=== PATIENT | female | born 1990 | race Caucasian/White ===

== ENCOUNTER 2016-11-27 00:52 | Emergency (ER) | payer OTHER ==
[2016-11-27 00:59] VITALS: TEMP 99.3
--- NOTE | 2016-11-27 01:35 | ED ---
General Adult HPI - General Chief complaint: Overdose Stated complaint: OVERDOSE Time Seen by Provider: 11/27/16 01:00 Source: patient, RN notes reviewed Mode of arrival: ambulatory Limitations: no limitations - History of Present Illness Initial comments: This is a 26-year-old female presents emergency Department after having used heroin today. Patient states she has been clean for 8 months and today was the first time any months that she has used again. Patient was found unresponsive and EMS arrived gave her Narcan and she became alert and oriented 3. Patient currently has no complaints. Patient would like to be discharged from the emergency department soon as possible. Patient denies any difficulty breathing first breath per patient denies any chest pain or palpitations. Patient denies any headache patient denies numbness weakness. Patient denies lightheadedness dizziness or near syncopal episode. Patient denies any abdominal pain. Patient denies nausea vomiting diarrhea. - Related Data Home Medications Medication Instructions Recorded Confirmed Ibuprofen [Motrin] 800 mg PO TID PRN 12/09/15 12/09/15 Previous Rx's Medication Instructions Recorded Albuterol Inhaler [Ventolin Hfa 2 puff INHALATION Q6HR PRN #1 12/09/15 Inhaler] inhaler Amoxic-Pot Clav 875-125Mg 1 tab PO Q12HR #20 tablet 12/09/15 [Augmentin 875-125] predniSONE 20 mg PO BID #10 tab 12/09/15 Allergies Allergy/AdvReac Type Severity Reaction Status Date / Time No Known Allergies Allergy Verified 11/27/16 00:59 Review of Systems ROS Statement: Those systems with pertinent positive or pertinent negative responses have been documented in the HPI. ROS Other: All systems not noted in ROS Statement are negative. Past Medical History Additional Past Medical History / Comment(s): ovarian cyst,pos History of Any Multi-Drug Resistant Organisms: None Reported Additional Past Surgical History / Comment(s): abd surgery for ovarian cyst Past Psychological History: Anxiety Smoking Status: Current every day smoker Past Drug Use History: None Reported, Heroin, Prescription Drug Abuse General Exam - General Exam Comments Initial Comments: GENERAL: Patient is well-developed and well-nourished. Patient is nontoxic and well- hydrated and is in no acute distress. ENT: Neck is soft and supple. No significant lymphadenopathy is noted. Oropharynx is clear. Moist mucous membranes. Neck has full range of motion without eliciting any pain. EYES: The sclera were anicteric and conjunctiva were pink and moist. Extraocular movements were intact and pupils were equal round and reactive to light. Eyelids were unremarkable. PULMONARY: Unlabored respirations. Good breath sounds bilaterally. No audible rales rhonchi or wheezing was noted. CARDIOVASCULAR: There is a regular rate and rhythm without any murmurs gallops or rubs. ABDOMEN: Soft and nontender with normal bowel sounds. SKIN: Skin is clear with no lesions or rashes and otherwise unremarkable. NEUROLOGIC: Patient is alert and oriented x3. Cranial nerves II through XII are grossly intact. Motor and sensory are also intact. Normal speech, volume and content. Symmetrical smile. MUSCULOSKELETAL: Normal extremities with adequate strength and full range of motion. LYMPHATICS: No significant lymphadenopathy is noted PSYCHIATRIC: Normal psychiatric evaluation. Patient is somewhat tearful because she is upset with herself or having used again Limitations: no limitations Course Vital Signs 11/27/16 00:55 Temperature 99.3 F Pulse Rate 89 Respiratory 16 Rate Blood Pressure 125/58 O2 Sat by Pulse 98 Oximetry Disposition Clinical Impression: Heroin overdose Disposition: HOME SELF-CARE Condition: Good Instructions: Narcotic Abuse (ED) Referrals: Dylan Garcia DO [Primary Care Provider] - 1-2 days Time of Disposition: 01:35
[2016-11-27 01:52] VITALS: BP 117/71; PULSE 81; RESP 18
== END 2016-11-27 01:53 | disposition home or self-care (01) ==
LOC: EC 00:52
DX: T40.1X1A Poisoning by heroin, accidental (unintentional), initial encounter (principal); F17.200 Nicotine dependence, unspecified, uncomplicated
CPT/HCPCS: 99284

== ENCOUNTER → 2021-05-07 | Outpatient (CLI) | payer OTHER ==
[2021-05-07 15:21] LABS: Basophils % (A) 1 %; Eosinophils # (A) 0.1 k/uL (0-0.7); Eosinophils % (A) 1 %; HCT 34.1 % (34.0-46.0); HGB 10.7 gm/dL (11.4-16.0); Hypochromasia Moderate; Lymphocytes # (A) 2.4 k/uL (1.0-4.8); Lymphocytes % (A) 33 %; MCH 25.9 pg (25.0-35.0); MCHC 31.4 g/dL (31.0-37.0); MCV 82.4 fL (80.0-100.0); Mean Platelet Volume 6.5; Monocytes # (A) 0.4 k/uL (0-1.0); Monocytes % (A) 5 %; Neutrophils # (A) 4.2 k/uL (1.3-7.7); Neutrophils % (A) 58 %; Platelet Count 368 k/uL (150-450); RBC 4.14 m/uL (3.80-5.40); RDW 15.3 % (11.5-15.5); WBC 7.2 k/uL (3.8-10.6)
== END | disposition home or self-care (01) ==
LOC: LABPAT 14:35
PROVIDERS: ATTEND Obstetrics & Gynecology
DX: Z01.812 Encounter for preprocedural laboratory examination (principal); N93.8 Other specified abnormal uterine and vaginal bleeding; N84.0 Polyp of corpus uteri
CPT/HCPCS: 36415; 85025

== ENCOUNTER 2021-05-18 07:47 | Day surgery (SDC) | payer OTHER ==
[2021-05-11 16:10] VITALS: BMI 34.1
[~2021-05-18 07:47] MED LIST: Pre Op ABX Message 1 EACH MISC MISCELLANE ONE
[2021-05-18] MEDS ORDERED: ONDANSETRON 4 MG/2 ML VIAL IVP ONE (08:17)
[2021-05-18] MEDS ORDERED: LACTATED RINGERS 1,000 ML IV SCH ×2 (08:17→10:15)
[2021-05-18] MEDS ORDERED: HYDROmorphone 0.5 MG/0.5 ML SYRINGE IVP PRN (08:17)
[2021-05-18] MEDS ORDERED: DEXAMETHASONE SOD PHOSPHATE 4 MG/ML 1 ML VIAL IV ONE (08:17)
[2021-05-18] MEDS ORDERED: LIDOCAINE 1% (10MG/ML) FOR IV START INTRADERMA PRN (08:17)
[2021-05-18] MEDS ORDERED: MIDAZOLAM 2 MG/2 ML VIAL IV PRN (08:17)
[2021-05-18] MEDS ORDERED: SUCCINYLCHOLINE CHLORIDE 100 MG/5 ML SYR IV ONE (09:18)
[2021-05-18] MEDS ORDERED: ACETAMINOPHEN IV (For NPO) 1,000 MG/100 ML VIAL ONE (09:18)
[2021-05-18] MEDS ORDERED: LIDOCAINE 1% INJ 10MG/ML (20 ML MDV) ONE (09:18)
[2021-05-18] MEDS ORDERED: MIDAZOLAM 2 MG/2 ML VIAL ONE (09:18)
[2021-05-18] MEDS ORDERED: PROPOFOL 10 MG/ML 20 ML VIAL IV ONE (09:18)
[2021-05-18] MEDS ORDERED: LACTATED RINGERS 1,000 ML IV ONE (09:51)
[2021-05-18] MEDS ORDERED: IBUPROFEN 600 MG TAB PO PRN (10:02)
[2021-05-18] MEDS ORDERED: KETOROLAC 15 MG/ML 1 ML VIAL IVP PRN (10:02)
[2021-05-18] MEDS ORDERED: ONDANSETRON 4 MG/2 ML VIAL IVP PRN (10:02)
[2021-05-18] MEDS ORDERED: METOCLOPRAMIDE 5 MG/ML 2 ML VIAL IVP PRN (10:02)
[2021-05-18] MEDS ORDERED: Acetaminophen-Codeine 300-30mg TAB PO PRN ×2 (10:02)
[2021-05-18] MEDS ORDERED: diphenhydrAMINE 50 MG/ML 1 ML VIAL IVP PRN (10:02)
[2021-05-18] MEDS ORDERED: SIMETHICONE 80 MG CHEWABLE PO PRN (10:02)
--- NOTE | 2021-05-18 10:10 | P.OP ---
Date of Procedure: 05/18/21 Preoperative Diagnosis: #1. Dysfunctional uterine bleeding #2. Possible endometrial polyp Postoperative Diagnosis: Same Procedure(s) Performed: #1. Diagnostic hysteroscopy #2. Dilation and curettage Anesthesia: JARRETT Surgeon: Gabe Snell Estimated Blood Loss (ml): 5 IV fluids (ml): 800 Urine output (ml): 100 Pathology: other (Endometrial curettings) Condition: stable Disposition: PACU Operative Findings: Preoperative pelvic examination demonstrated a 4-5 week anteverted mobile normal shaped uterus with normal adnexa bilaterally. Intraoperatively, the uterus sounded to 8 cm. Using the hysteroscope, the bilateral tubal ostia were seen. There was a moderate amount of shaggy in usual tissue along the posterior wall of the entire uterus plus a possible polypoid structure. A moderate amount of tissue was removed onto a Telfa in the vagina during the case. Description of Procedure: The patient was prepped and draped in usual fashion after general endotracheal anesthesia was admission by the anesthesiologist. A weighted speculum and the anterior lip of the cervix grasped with a single-tooth tenaculum. The bladder was drained of approximately 100 mL of clear tiera urine. The uterus was sounded to 8 cm as noted above. Serial dilation was carried out to admit the diagnostic hysteroscope which was placed to the fundus and the uterus distended with fluid. The findings as noted above with the bilateral tubal ostia seen. There was a moderate amount of shaggy tissue noted along the posterior wall uterus primarily with a small possibly polypoid structure the lower portion on the posterior wall of the endometrial cavity. After adequate hysteroscopy had been carried out, the scope was set aside and a medium sharp curet introduced into the endometrial cavity. Thorough and circumferential curettage was carried out onto a Telfa placed in the vagina. There was a moderate amount of tissue returned with some possible polypoid appearing tissue present. Following curettage with the typical gritty texture encountered throughout, a polyp forceps was introduced and no further tissue was noted. All instrumentation was then removed. Estimated blood loss for the case was approximate 5 mL. There were no complications. All sponge, instrument, and needle counts were correct. The patient tolerated the procedure well and proceeded to the recovery room in stable condition.
[2021-05-18 10:11] VITALS: TEMP 98.1
[2021-05-18 11:13] VITALS: BP 130/72; PULSE 81; RESP 16
== END 2021-05-18 11:22 | disposition home or self-care (01) ==
LOC: OR 07:47
PROVIDERS: ATTEND Obstetrics & Gynecology
DX: N84.0 Polyp of corpus uteri (principal); N93.8 Other specified abnormal uterine and vaginal bleeding; F41.9 Anxiety disorder, unspecified; F32.A Depression, unspecified; K21.9 Gastro-esophageal reflux disease without esophagitis; F17.210 Nicotine dependence, cigarettes, uncomplicated; Z98.890 Other specified postprocedural states; F19.11 Other psychoactive substance abuse, in remission; F10.11 Alcohol abuse, in remission; Z82.49 Family history of ischemic heart disease and other diseases of the circulatory system; Z82.5 Family history of asthma and other chronic lower respiratory diseases; Z82.3 Family history of stroke; Z81.8 Family history of other mental and behavioral disorders; Z80.3 Family history of malignant neoplasm of breast; Z80.41 Family history of malignant neoplasm of ovary; Z79.891 Long term (current) use of opiate analgesic; Z79.51 Long term (current) use of inhaled steroids; Z79.899 Other long term (current) drug therapy
CPT/HCPCS: 88305; 84703; 58558; J2250; J1100; J2405; J2001; J0131; J0330; J2704

== ENCOUNTER 2022-03-29 01:56 | Emergency (ER) | payer OTHER ==
[2022-03-29 02:05] VITALS: RESP 20
[2022-03-29] MEDS ORDERED: SODIUM CHLORIDE 0.9% 1,000 ML IV STA (02:16)
[2022-03-29] MEDS ORDERED: PANTOPRAZOLE 40 MG/10 ML VIAL IVP STA (02:16)
[2022-03-29] MEDS ORDERED: ONDANSETRON 4 MG/2 ML VIAL IVP STA (02:16)
[2022-03-29 02:41] LABS: Basophils # (A) 0.1 k/uL (0-0.2); Basophils % (A) 1 %; Eosinophils # (A) 0.1 k/uL (0-0.7); Eosinophils % (A) 1 %; HCT 38.7 % (34.0-46.0); Lymphocytes # (A) 3.2 k/uL (1.0-4.8); Lymphocytes % (A) 32 %; MCH 27.6 pg (25.0-35.0); MCHC 33.6 g/dL (31.0-37.0); MCV 82.3 fL (80.0-100.0); Mean Platelet Volume 7.5; Monocytes # (A) 0.5 k/uL (0-1.0); Monocytes % (A) 5 %; Neutrophils # (A) 5.8 k/uL (1.3-7.7); Neutrophils % (A) 58 %; Platelet Count 425 k/uL (150-450); RDW 13.9 % (11.5-15.5); WBC 9.9 k/uL (3.8-10.6)
[2022-03-29 02:52] LABS: HCG,Qualitative Serum Not Detected
[2022-03-29 02:53] LABS: ALT 15 U/L (4-34); AST 19 U/L (14-36); African American GFR (CKD) >90 (>60 ml/min/1.73 sqM); Albumin 4.6 g/dL (3.5-5.0); Alkaline Phosphatase 112 U/L (38-126); Amylase 45 U/L (30-110); Anion Gap 14 mmol/L; Blood Urea Nitrogen 18 mg/dL (7-17); Carbon Dioxide 25 mmol/L (22-30); Chloride 97 mmol/L (98-107); Glucose 131 mg/dL (74-99); Lipase 47 U/L (23-300); Non-African American GFR(CKD) >90 (>60 ml/min/1.73 sqM); Potassium 3.7 mmol/L (3.5-5.1); Sodium 136 mmol/L (137-145); Total Bilirubin 0.5 mg/dL (0.2-1.3); Total Protein 7.9 g/dL (6.3-8.2)
[2022-03-29 03:01] LABS: INR 1.1 (<1.2); Partial Thromboplastin Time 29.3 sec (22.0-30.0); Prothrombin Time 11.9 sec (9.0-12.0)
[2022-03-29] MEDS ORDERED: KETOROLAC 15 MG/ML 1 ML VIAL IVP STA (03:17)
[2022-03-29] MEDS ORDERED: LORazepam 1 MG TAB PO STA (03:24)
--- NOTE | 2022-03-29 03:28 | ED ---
General Adult HPI - General Chief complaint: Recheck/Abnormal Lab/Rx Stated complaint: lower back pain Time Seen by Provider: 03/29/22 02:07 Source: patient, RN notes reviewed, old records reviewed Mode of arrival: ambulatory Limitations: no limitations - History of Present Illness Initial comments: Patient is a 32-year-old female who presents emergency Department complaining of 5 or 6 days of lower abdominal pain with some radiation to the back as well as heavy period-like symptoms. Patient states she does have a history of heavy menstrual bleeding, and she is once again expressing when those episodes. Also endorses some atypical abdominal discomfort in her lower abdomen and radiation to the back. Does have a history of a ruptured uterine cyst that did require surgical intervention. Is not on blood thinners. Does take Suboxone. Denies c hest pain or shortness of breath. Denies fevers, chills, cough. Denies any urinary complaints. States she is not . She presents over concern for continuation of pain. States she is very anxious as well. Is uncertain what is causing her current symptoms. Presents for further evaluation at this time. Unknown palliative or provocative factors. Describes it as achy sharp sensation. Has been more or less constant for the last 5 days. No waxing and waning of symptoms. States the back pain seems to be worse than the abdominal pain. - Related Data Home Medications Medication Instructions Recorded Confirmed Acyclovir 800 mg PO DAILY PRN 05/11/21 05/11/21 Budesonide/Formoterol Fumarate 2 puff INHALATION BID 05/11/21 05/11/21 [Symbicort 160-4.5 Mcg Inhaler] Buprenorphine HCl/Naloxone HCl 1 each SL BID 05/11/21 05/11/21 [Suboxone 8 mg-2 mg Sl Film] Cetirizine HCl 10 mg PO HS 05/11/21 05/11/21 Dextroamphetamine/Amphetamine 20 mg PO BID 05/11/21 05/11/21 [Adderall] Ergocalciferol [Vitamin D2 (1250 1,250 mcg PO Q30D 05/11/21 05/18/21 Mcg = 25171 Iu)] FLUoxetine HCL [PROzac] 40 mg PO BID 05/11/21 05/11/21 Famotidine 20 mg PO HS 05/11/21 05/11/21 Gabapentin [Neurontin] 600 mg PO TID 05/11/21 05/11/21 Multivitamins, Thera [Multivitamin 1 tab PO DAILY 05/11/21 05/18/21 (formulary)] Omeprazole [PriLOSEC] 40 mg PO DAILY 05/11/21 05/11/21 Sennosides [Senna] 8.6 mg PO HS 05/11/21 05/11/21 norgestimate-ethinyl estradioL 1 tab PO DAILY 05/11/21 05/11/21 [Sprintec 28 Day Tablet] Previous Rx's Medication Instructions Recorded Sulfamethox-Tmp 800-160Mg [Bactrim 1 tab PO Q12HR 7 Days #14 tab 03/29/22 DS 800-160 mg] Allergies Allergy/AdvReac Type Severity Reaction Status Date / Time No Known Allergies Allergy Verified 03/29/22 02:05 Review of Systems ROS Statement: Those systems with pertinent positive or pertinent negative responses have been documented in the HPI. Review of Systems: CONST: Denies fever EYES: Denies blurry vision ENT: Denies nasal congestion C/V: Denies Chest pain RESP: Denies shortness of breath GI: Versus abdominal pain, back pain : Denies dysuria SKIN: Denies rash. MSK: Denies joint pain. NEURO: Denies headache ROS Other: All systems not noted in ROS Statement are negative. Past Medical History Additional Past Medical History / Comment(s): ovarian cyst,pos History of Any Multi-Drug Resistant Organisms: None Reported Additional Past Surgical History / Comment(s): abd surgery for ovarian cyst Past Psychological History: Anxiety Smoking Status: Current every day smoker Past Alcohol Use History: None Reported Past Drug Use History: Heroin, Prescription Drug Abuse General Exam - General Exam Comments Initial Comments: General: Appears in no acute distress. HEAD: Normal with no signs of head trauma. EYES: PERRLA, EOMI, conjunctiva normal, no discharge. ENT: Hearing grossly intact, normal oropharynx. RESPIRATORY: Clear breath sounds bilaterally. No wheezes, rales, or rhonchi. C/V: Tachycardia. S1 and S2 auscultated. Peripheral pulses 2+ intact throughout. ABD: Abd is soft, nontender, nondistended. No flank pain. Primarily lower paraspinal lumbar tenderness palpation. No CVA tenderness to percussion. No g uarding. No rebound tenderness. EXT: Normal range of motion, no obvious deformity SKIN: No rashes or lesions observed on exposed skin. NEURO: Alert and oriented 4. No focal deficits. Limitations: no limitations Course Vital Signs 03/29/22 03/29/22 02:03 04:56 Temperature 97.6 F 98.6 F Pulse Rate 127 H 98 Respiratory 20 Rate Blood Pressure 128/76 121/74 O2 Sat by Pulse 96 96 Oximetry Medical Decision Making - Medical Decision Making Based on the patient's presentation and physical exam, concern for acute intra- abdominal pathology for her current symptoms. Most her pain does seem to be on her lower back. However we will obtain abdominal laboratory studies, a screening EKG due to her initial tachycardia, as well as urine studies. We will obtain an abdominal x-ray as well. She will be symptomatically treated as well. She was in agreement this plan. She is having heavy menstrual bleeding which is typical for her. Is using the normal number of tampons and pads. Vital signs within acceptable limits except for the initial tachycardia which has resolved. Screening EKG shows no signs of acute ischemia. Laboratory studies are remarkable for normal coags, no evidence of anemia, with electrolyte within acceptable limits. Patient is not . KUB x-ray as interpreted by myself reveals no acute intra-abdominal process. No signs of obstruction, free air, bony traumatic injury. I did discuss with the patient that I would like to obtain CT imaging of the abdomen and pelvis per and she was in agreement this plan. At this time, she is resting comfortably and is in no acute distress.Patient's CT imaging is interp reted by myself reveals no acute intra-abdominal process. No evidence of obstruction, no evidence of hydronephrosis, no bony traumatic injury. Urinalysis also returned at this time and was concerning for a UTI. On reevaluation, we discussed results. She is feeling improved. Vital signs within acceptable limits. I would like to discharge her home at this time on antibiotics for UTI. She was in agreement with the plan. Strict return precautions were discussed. I will provide the patient with a prescription for Bactrim. I instructed the patient to follow up with their PCP in the next 1-3 days. I explained that the patient should return to the emergency department if they experience any worsening symptoms. Strict return precautions were discussed with the patient. The patient expressed understanding of these instructions. I answered all questions that the patient had. The patient was discharged home in good condition with their prescriptions and follow up information. - Lab Data Result diagrams: 03/29/22 02:30 03/29/22 02:30 Lab Results 03/29/22 03/29/22 03/29/22 Range/Units 02:20 02:30 02:30 WBC 9.9 (3.8-10.6) k/uL RBC 4.70 (3.80-5.40) m/uL Hgb 13.0 (11.4-16.0) gm/dL Hct 38.7 (34.0-46.0) % MCV 82.3 (80.0-100.0) fL MCH 27.6 (25.0-35.0) pg MCHC 33.6 (31.0-37.0) g/dL RDW 13.9 (11.5-15.5) % Plt Count 425 (150-450) k/uL MPV 7.5 Neutrophils % 58 % Lymphocytes % 32 % Monocytes % 5 % Eosinophils % 1 % Basophils % 1 % Neutrophils # 5.8 (1.3-7.7) k/uL Lymphocytes # 3.2 (1.0-4.8) k/uL Monocytes # 0.5 (0-1.0) k/uL Eosinophils # 0.1 (0-0.7) k/uL Basophils # 0.1 (0-0.2) k/uL PT 11.9 (9.0-12.0) sec INR 1.1 (<1.2) APTT 29.3 (22.0-30.0) sec Sodium (137-145) mmol/L Potassium (3.5-5.1) mmol/L Chloride (98-107) mmol/L Carbon Dioxide (22-30) mmol/L Anion Gap mmol/L BUN (7-17) mg/dL Creatinine (0.52-1.04) mg/dL Est GFR (CKD-EPI)AfAm (>60 ml/min/1.73 sqM) Est GFR (CKD-EPI)NonAf (>60 ml/min/1.73 sqM) Glucose (74-99) mg/dL Plasma Lactic Acid Aleks (0.7-2.0) mmol/L Calcium (8.4-10.2) mg/dL Total Bilirubin (0.2-1.3) mg/dL AST (14-36) U/L ALT (4-34) U/L Alkaline Phosphatase (38-126) U/L Total Protein (6.3-8.2) g/dL Albumin (3.5-5.0) g/dL Amylase (30-110) U/L Lipase (23-300) U/L HCG, Qual Urine Color Urine Appearance (Clear) Urine pH (5.0-8.0) Ur Specific [place] (1.001-1.035) Urine Protein (Negative) Urine Glucose (UA) (Negative) Urine Ketones (Negative) Urine Blood (Negative) Urine Nitrite (Negative) Urine Bilirubin (Negative) Urine Urobilinogen (<2.0) mg/dL Ur Leukocyte Esterase (Negative) Urine RBC (0-5) /hpf Urine WBC (0-5) /hpf Ur Squamous Epith Cells (0-4) /hpf Hyaline Casts (0-2) /lpf Urine Mucus (None) /hpf Urine Yeast (Budding) (None) /hpf Blood Type O Positive Blood Type Recheck O Pos Bld Type Recheck Status No Antibody Screen NEGATIVE Spec Expiration Date 04/01/2022 - 231903/29/22 03/29/22 03/29/22 Range/Units 02:30 02:30 04:20 WBC (3.8-10.6) k/uL RBC (3.80-5.40) m/uL Hgb (11.4-16.0) gm/dL Hct (34.0-46.0) % MCV (80.0-100.0) fL MCH (25.0-35.0) pg MCHC (31.0-37.0) g/dL RDW (11.5-15.5) % Plt Count (150-450) k/uL MPV Neutrophils % % Lymphocytes % % Monocytes % % Eosinophils % % Basophils % % Neutrophils # (1.3-7.7) k/uL Lymphocytes # (1.0-4.8) k/uL Monocytes # (0-1.0) k/uL Eosinophils # (0-0.7) k/uL Basophils # (0-0.2) k/uL PT (9.0-12.0) sec INR (<1.2) APTT (22.0-30.0) sec Sodium 136 L (137-145) mmol/L Potassium 3.7 (3.5-5.1) mmol/L Chloride 97 L (98-107) mmol/L Carbon Dioxide 25 (22-30) mmol/L Anion Gap 14 mmol/L BUN 18 H (7-17) mg/dL Creatinine 0.85 (0.52-1.04) mg/dL Est GFR (CKD-EPI)AfAm >90 (>60 ml/min/1.73 sqM) Est GFR (CKD-EPI)NonAf >90 (>60 ml/min/1.73 sqM) Glucose 131 H (74-99) mg/dL Plasma Lactic Acid Aleks 2.0 (0.7-2.0) mmol/L Calcium 10.0 (8.4-10.2) mg/dL Total Bilirubin 0.5 (0.2-1.3) mg/dL AST 19 (14-36) U/L ALT 15 (4-34) U/L Alkaline Phosphatase 112 (38-126) U/L Total Protein 7.9 (6.3-8.2) g/dL Albumin 4.6 (3.5-5.0) g/dL Amylase 45 (30-110) U/L Lipase 47 (23-300) U/L HCG, Qual Not Detected Urine Color Yellow Urine Appearance Turbid H (Clear) Urine pH 5.5 (5.0-8.0) Ur Specific [place] 1.026 (1.001-1.035) Urine Protein 2+ H (Negative) Urine Glucose (UA) Trace H (Negative) Urine Ketones Negative (Negative) Urine Blood Moderate H (Negative) Urine Nitrite Negative (Negative) Urine Bilirubin Negative (Negative) Urine Urobilinogen <2.0 (<2.0) mg/dL Ur Leukocyte Esterase Large H (Negative) Urine RBC 17 H (0-5) /hpf Urine WBC 65 H (0-5) /hpf Ur Squamous Epith Cells 42 H (0-4) /hpf Hyaline Casts 103 H (0-2) /lpf Urine Mucus Many H (None) /hpf Urine Yeast (Budding) Occasional H (None) /hpf Blood Type Blood Type Recheck Bld Type Recheck Status Antibody Screen Spec Expiration Date - EKG Data -: EKG Interpreted by Me EKG Comments: 12-lead Electrocardiogram Interpretation Note EKG was reviewed and interpreted by myself. 12-lead ECG performed at 0242 is interpreted by me as revealing normal sinus rhythm at a rate of 71 beats per minute. [place] is normal. MI interval is 140 ms, QRS duration is 90 ms, QTc is 423 ms. There is a new isolated T-wave inversion in lead V2. There were no other acute ST or T wave abnormalities to suggest myocardial ischemia or injury. R wave progression across the precordium was satisfactory. By my interpretation this EKG is non-diagnostic for acute ischemia. When compared with EKG from August 2015, isolated T-wave inversion is new in V2 but no other significant findings. No suggestion of acute ischemia. Disposition Clinical Impression: UTI (urinary tract infection) Disposition: HOME SELF-CARE Condition: Good Instructions (If sedation given, give patient instructions): Urinary Tract Infection in Women (ED) Prescriptions: Sulfamethox-Tmp 800-160Mg [Bactrim DS 800-160 mg] 1 tab PO Q12HR 7 Days #14 tab Is patient prescribed a controlled substance at d/c from ED?: No Referrals: Archie Rucker MD [Primary Care Provider] - 1-2 days Time of Disposition: 05:00
--- NOTE | 2022-03-29 03:35 | XR ---
EXAMINATION TYPE: XR KUB DATE OF EXAM: 03/29/2022 COMPARISON: 08/21/2015 HISTORY: Back pain TECHNIQUE: 2 views upright FINDINGS: There is no sign of intestinal obstruction or pneumoperitoneum. Fecal pattern is normal. No evidence of a mass. Lung bases are clear IMPRESSION: Nonacute abdomen. No change.
--- NOTE | 2022-03-29 04:08 | CT ---
EXAMINATION TYPE: CT abdomen pelvis w con DATE OF EXAM: 03/29/2022 COMPARISON: 08/21/2015 HISTORY: Lower Abdominal pain CT DLP: 1003.2 mGycm Automated exposure control for dose reduction was used. CONTRAST: Performed with IV Contrast, patient injected with 100 mL of Isovue 300. Images obtained from the diaphragm to the floor the pelvis with the IV contrast. Lung bases are clear. No pleural effusion. Heart size is normal. No pericardial effusion. Liver spleen stomach pancreas gallbladder appear normal. Extra not dilated. There is no adrenal mass. Kidneys of normal size. No hydronephrosis. Ureters are not dilated. Appendi x is posterior and lateral and appears normal. There is no retroperitoneal adenopathy. Bladder disten ds smoothly. No inguinal hernia. No free fluid in the pelvis. Uterus is retroverted. No pelvic mass. There is no mesenteric edema. No ascites or free air. No sign of a bowel obstruction. The lumbar vertebrae have normal alignment. Posterior elements are intact. No compression fracture. B wilberto pelvis is intact. The hip joints are intact. IMPRESSION: Negative CT scan abdomen and pelvis. No adverse change compared to old exam.
[2022-03-29 04:36] LABS: Appearance,Urine Turbid (Clear); Bilirubin,Urine Negative (Negative); Blood,Urine Moderate (Negative); Budding Yeast,Urine Occasional /hpf; Color,Urine Yellow; Glucose,Urine (UA) Trace (Negative); Hyaline Casts,Urine 103 /lpf (0-2); Ketones,Urine Negative (Negative); Leukocyte Esterase,Urine Large (Negative); Mucus,Urine Many /hpf; Nitrite,Urine Negative (Negative); PH, Urine 5.5 (5.0-8.0); Protein,Urine 2+ (Negative); RBC,Urine 17 /hpf (0-5); Specific Gravity,Urine 1.026 (1.001-1.035); Squamous Epithelial Cell,Urine 42 /hpf (0-4); Urobilinogen,Urine <2.0 mg/dL (<2.0); WBC,Urine 65 /hpf (0-5)
[2022-03-29] MEDS ORDERED: SULFAMETHOX-TMP 800-160MG 1 EACH TAB PO STA (05:01)
[2022-03-29 07:10] VITALS: BP 121/74; PULSE 98; TEMP 98.6
== END 2022-03-29 05:22 | disposition home or self-care (01) ==
LOC: EC 01:56
DX: N39.0 Urinary tract infection, site not specified (principal); F41.9 Anxiety disorder, unspecified; F17.200 Nicotine dependence, unspecified, uncomplicated
CPT/HCPCS: 36415; 93005; 86900; 86901; 80053; 82150; 83605; 83690; 85025; 85610; 85730; 86850; 81001; 84703; 87086; 74018; 74177; 99284; 96374; 96375 ×2; 96361; J2405; J1885; C9113; Q9967

== ENCOUNTER 2022-04-20 12:47 | Emergency (ER) | payer OTHER ==
[2022-04-20 13:08] VITALS: TEMP 97
[2022-04-20] MEDS ORDERED: ONDANSETRON ODT 4 MG TAB PO STA (16:35)
[2022-04-20] MEDS ORDERED: FAMOTIDINE 20 MG TAB PO STA (16:35)
[2022-04-20] MEDS ORDERED: LORazepam 1 MG TAB PO STA ×2 (16:35→18:55)
--- NOTE | 2022-04-20 16:37 | ED ---
General Adult HPI - General Chief complaint: Alcohol Stated complaint: alcohol withdrawal Time Seen by Provider: 04/20/22 16:29 Source: patient, RN notes reviewed Mode of arrival: ambulatory Limitations: no limitations - History of Present Illness Initial comments: Patient is a pleasant 32-year-old female presenting to the emergency department with concerns for alcohol withdrawal. Patient last drink close to 48 hours ago. Patient is drinking anywhere from a couple of beers up until a pint per day. Patient does have some occasional nausea. Patient does feel jittery and shaky. Patient finds it difficult to relax. - Related Data Home Medications Medication Instructions Recorded Confirmed Buprenorphine HCl/Naloxone HCl 1 film SL BID 05/11/21 04/20/22 [Suboxone 8 mg-2 mg Sl Film] Cetirizine HCl 10 mg PO HS 05/11/21 04/20/22 Ergocalciferol [Vitamin D2 (1250 1,250 mcg PO Q30D 05/11/21 04/20/22 Mcg = 17236 Iu)] FLUoxetine HCL [PROzac] 40 mg PO HS 05/11/21 04/20/22 Omeprazole [PriLOSEC] 40 mg PO HS 05/11/21 04/20/22 Albuterol Sulfate [Proair Hfa] 2 puff INHALATION RT-QID PRN 04/20/22 04/20/22 Ibuprofen [Motrin] 800 mg PO BID PRN 04/20/22 04/20/22 metFORMIN HCL [Glucophage] 1,000 mg PO HS 04/20/22 04/20/22 Allergies Allergy/AdvReac Type Severity Reaction Status Date / Time No Known Allergies Allergy Verified 04/20/22 18:01 Review of Systems ROS Statement: Those systems with pertinent positive or pertinent negative responses have been documented in the HPI. ROS Other: All systems not noted in ROS Statement are negative. Constitutional: Denies: fever Eyes: Denies: eye pain ENT: Denies: ear pain Respiratory: Denies: cough Cardiovascular: Denies: palpitations Endocrine: Denies: fatigue Gastrointestinal: Reports: as per HPI, nausea. Denies: abdominal pain Genitourinary: Denies: dysuria Musculoskeletal: Denies: back pain Skin: Denies: rash Neurological: Denies: weakness Psychiatric: Reports: as per HPI Past Medical History Additional Past Medical History / Comment(s): ovarian cyst,pos History of Any Multi-Drug Resistant Organisms: None Reported Additional Past Surgical History / Comment(s): abd surgery for ovarian cyst Past Psychological History: Anxiety Smoking Status: Current every day smoker Past Alcohol Use History: None Reported, Abuse Past Drug Use History: Heroin, Prescription Drug Abuse General Exam Limitations: no limitations General appearance: alert, in no apparent distress Head exam: Present: normocephalic Eye exam: Present: normal appearance Neck exam: Present: normal inspection Respiratory exam: Present: normal lung sounds bilaterally Cardiovascular Exam: Present: regular rate, normal rhythm GI/Abdominal exam: Present: soft. Absent: tenderness Extremities exam: Present: normal inspection Neurological exam: Present: alert Psychiatric exam: Present: anxious (Patient does appear mildly anxious) Skin exam: Present: normal color Course Vital Signs 04/20/22 04/20/22 13:05 17:23 Temperature 97 F L Pulse Rate 87 66 Respiratory 20 17 Rate Blood Pressure 141/102 127/86 O2 Sat by Pulse 99 100 Oximetry Medical Decision Making - Medical Decision Making Patient reevaluated and updated Disposition Clinical Impression: Alcohol withdrawal Disposition: HOME SELF-CARE Condition: Stable Instructions (If sedation given, give patient instructions): Alcohol Withdrawal (ED) Additional Instructions: Extra Ativan to go home with, this should be cut in half and used over the next one to 2 days. Return for increased heart rate, vomiting, shaking, worsening or changing symptoms or other concerns. Discontinue all alcohol use. Consider follow-up with [place] or similar facility, list provided Is patient prescribed a controlled substance at d/c from ED?: No Referrals: Jm Garcia MD [STAFF PHYSICIAN] - 1-2 days Time of Disposition: 18:53
[2022-04-20 17:25] VITALS: BP 127/86; PULSE 66; RESP 17
[2022-04-20] MEDS ORDERED: LORazepam 2 MG/ML INJ IM STA (17:31)
[2022-04-20] MEDS ORDERED: ONDANSETRON 4 MG ODT STARTER PACK 2 TAB BTL PO STA (18:54)
== END 2022-04-20 19:32 | disposition home or self-care (01) ==
LOC: EC 12:47
DX: F10.239 Alcohol dependence with withdrawal, unspecified (principal); F17.200 Nicotine dependence, unspecified, uncomplicated; F41.9 Anxiety disorder, unspecified; F11.20 Opioid dependence, uncomplicated
CPT/HCPCS: 82075; 99284; J2060; S0119

== ENCOUNTER → 2022-11-18 | Outpatient (CLI) | payer BC ==
--- NOTE | 2022-11-19 10:16 | MR ---
EXAMINATION TYPE: MR brain wo con DATE OF EXAM: 11/18/2022 COMPARISON: NONE HISTORY: 32-year-old female G40.89, Seizure disorder TECHNIQUE: Multiplanar, multisequence images of the brain and brainstem were acquired without IV con trast. Diffusion weighted imaging is performed. FINDINGS: No evidence for acute infarction, hemorrhage, mass, mass effect, midline shift, herniation, effacemen t of basal cisterns, or extra-axial fluid collection. The ventricles and sulci are age-appropriate. Major intracranial flow voids are intact. T2/FLAIR weighted sequences show no white matter signal abnormality. No branch matter heterotopia or volume loss of the fornices or hippocampi. Midline structures demonstrate normal morphology. The craniocervical junction is normal. Trace mucosal thickening within the ethmoid air cells. Globes are intact. IMPRESSION: No intracranial abnormality seen.
== END | disposition home or self-care (01) ==
LOC: RADMRIMAIN 11:35
PROVIDERS: ATTEND Internal Medicine
DX: Z00.8 Encounter for other general examination (principal); G40.89 Other seizures; I10 Essential (primary) hypertension; F33.1 Major depressive disorder, recurrent, moderate; N89.8 Other specified noninflammatory disorders of vagina
CPT/HCPCS: 70551

== ENCOUNTER 2024-02-04 09:22 | Emergency (ER) | payer BC, OTHER ==
[2024-02-04 09:42] VITALS: RESP 18
--- NOTE | 2024-02-04 10:47 | ED ---
Anxiety HPI - General Chief Complaint: Anxiety Stated Complaint: Vomiting, anxiety Time Seen by Provider: 02/04/24 10:44 Source: patient, RN notes reviewed Mode of arrival: ambulatory - History of Present Illness Initial Comments: 34-year-old female presented to the ER with a chief complaint of anxiety. Patient does take Suboxone due to herion abuse. Patient states she entered [facility] for Xanax use on 01-30-2024. Patient states she completed the detox process last night decided to leave with a friend. Patient reports she did use methamphetamine last night. She also reports smoking marijuana. No other drugs or alcohol use. Patient states she would like to reenter rehabilitation and feels very anxious about her decision. She does report that her she feels as if her family would be "better off without me". She denies any plan. Denies any homicidal ideations. She denies any current pain or physical complaints. Patient states that she presented to the ER today because if not she would have relapsed on Xanax as she is sleeping in her car. Patient did like help reentering rehabilitation. - Related Data Home Medications: Home Medications Medication Instructions Recorded Confirmed Buprenorphine HCl/Naloxone HCl 1 film SL TID 05/11/21 02/04/24 [Suboxone 8 mg-2 mg Sl Film] Cetirizine HCl 10 mg PO DAILY 05/11/21 02/04/24 Ergocalciferol [Vitamin D2 (1250 1,250 mcg PO Q30D 05/11/21 02/04/24 Mcg = 90084 Iu)] FLUoxetine HCL [PROzac] 40 mg PO DAILY 05/11/21 02/04/24 Albuterol Sulfate [Proair Hfa] 2 puff INHALATION RT-QID PRN 04/20/22 02/04/24 Acyclovir [Zovirax] 800 mg PO DAILY PRN 02/04/24 02/04/24 Glycopyrrolate [Robinul] 1 mg PO BID 02/04/24 02/04/24 Ketoconazole 2% Cream [Nizoral 2%] 1 applic TOPICAL HS 02/04/24 02/04/24 Ondansetron Odt [Zofran Odt] 4 mg PO TID PRN 02/04/24 02/04/24 lisinopriL [Zestril] 10 mg PO DAILY 02/04/24 02/04/24 Allergies/Adverse Reactions: Allergies Allergy/AdvReac Type Severity Reaction Status Date / Time No Known Allergies Allergy Verified 02/04/24 11:40 Review of Systems ROS Statement: Those systems with pertinent positive or pertinent negative responses have been documented in the HPI. ROS Other: All systems not noted in ROS Statement are negative. Past Medical History Additional Past Medical History / Comment(s): ovarian cyst,pos History of Any Multi-Drug Resistant Organisms: None Reported Additional Past Surgical History / Comment(s): abd surgery for ovarian cyst Past Psychological History: Anxiety Smoking Status: Current every day smoker Past Alcohol Use History: None Reported, Abuse Past Drug Use History: Heroin, Methamphetamine, Prescription Drug Abuse General Exam Limitations: no limitations General appearance: alert, in no apparent distress, anxious Respiratory exam: Present: normal lung sounds bilaterally. Absent: respiratory distress, wheezes, rales, rhonchi, stridor Cardiovascular Exam: Present: regular rate, normal rhythm, normal heart sounds. Absent: systolic murmur, diastolic murmur, rubs, gallop, clicks GI/Abdominal exam: Present: soft, normal bowel sounds. Absent: distended, tenderness, guarding, rebound, rigid Extremities exam: Present: normal inspection, full ROM, normal capillary refill. Absent: tenderness, pedal edema, joint swelling, calf tenderness Neurological exam: Present: alert, oriented X3, CN II-XII intact Skin exam: Present: warm, dry, intact, normal color. Absent: rash Course Vital Signs 02/04/24 02/04/24 02/04/24 09:31 10:20 16:24 Temperature 98.1 F 98.3 F Pulse Rate 91 93 71 Respiratory 18 18 18 Rate Blood Pressure 147/112 153/109 141/81 O2 Sat by Pulse 99 98 100 Oximetry - Reevaluation(s) Reevaluation #1: 02/04/24 15:34 Case discussed with DILIP Jones, who advises on discharge with outpatient resources provided. Medical Decision Making - Medical Decision Making Was pt. sent in by a medical professional or institution (, PA, TECHNOLOGY OFFICER, urgent care, hospital, or skilled nursing...) When possible be specific @ -No Did you speak to anyone other than the patient for history (EMS, parent, family, police, friend...)? What history was obtained from this source @ -No Did you review nursing and triage notes (agree or disagree)? Why? @ -I reviewed and agree with nursing and triage notes Were old charts reviewed (outside hosp., previous admission, EMS record, old EKG, old radiological studies, urgent care reports/EKG's, skilled nursing records)? Report findings @ -No old charts were reviewed Differential Diagnosis (chest pain, altered mental status, abdominal pain women, abdominal pain men, vaginal bleeding, weakness, fever, dyspnea, syncope, headache, dizziness, GI bleed, back pain, seizure, CVA, palpatations, mental health, musculoskeletal)? @ -Differential Mental Health: Depression, anxiety, bipolar, psychosis, schizophrenia, borderline personality, situational depression, adjustment disorder, behavioral disorder, brain tumor, malingering, substance abuse, en cephalopathy, medication reaction, dementia, hypothyroidism, degenerative neurologic disorder, lupus.... This is not meant to be all-inclusive list EKG interpreted by me (3pts min.). @ -As above X-rays interpreted by me (1pt min.). @ -None done CT interpreted by me (1pt min.). @ -None done U/S interpreted by me (1pt. min.). @ -None done What testing was considered but not performed or refused? (CT, X-rays, U/S, labs)? Why? @ -None What meds were considered but not given or refused? Why? @ -None Did you discuss the management of the patient with other professionals (professionals i.e. , PA, TECHNOLOGY OFFICER, lab, RT, psych nurse, sr. social media & mobile manager, back shoe worker, teacher, credit risk officer, ed case manager)? Give summary @ -Case discussed with Karen CHERRY, who advises discharge and outpatient management. Was smoking cessation discussed for >3mins.? @ -No Was critical care preformed (if so, how long)? @ -No Were there social determinants of health that impacted care today? How? (Homelessness, low income, unemployed, alcoholism, drug addiction, transportation, low edu. Level, literacy, decrease access to med. care, prison, rehab)? @ -Drug addiction Was there de-escalation of care discussed even if they declined (Discuss DNR or withdrawal of care, Hospice)? DNR status @ -No What co-morbidities impacted this encounter? (DM, HTN, Smoking, COPD, CAD, Cancer, CVA, ARF, Chemo, Hep., AIDS, mental health diagnosis, sleep apnea, morbid obesity)? @ -Anxiety/drug addiction Was patient admitted / discharged? Hospital course, mention meds given and route, prescriptions, significant lab abnormalities, going to OR and other pertinent info. @ -Discharge. 34-year-old female presented to ER with a chief complaint of anxiety. History and physical exam completed. Vitals within normal limits. Shashank baird had no signs of acute distress but is anxious on exam. Exam unremarkable. Laboratory studies obtained unremarkable. Urine hCG negative. UDS positive for barbiturates, amphetamines, methamphetamines, benzodiazepines and marijuana. EKG showing no acute evidence of infarct or ischemia. Patient is cleared for EPS evaluation. EPS, Karen Sanchez, evaluated patient at bedside and reports she is stable for discharge with outpatient management. Return parameters discussed. Patient discharged stable condition. Patient verbally expressed understanding agree with care plan. Case discussed with ED attending, Dr. Mckeon. Undiagnosed new problem with uncertain prognosis? @ -No Drug Therapy requiring intensive monitoring for toxicity (Heparin, Nitro, Insulin, Cardizem)? @ -No Were any procedures done? @ -No Diagnosis/symptom? @ -Anxiety/polysubstance abuse Acute, or Chronic, or Acute on Chronic? @ -Acute Uncomplicated (without systemic symptoms) or Complicated (systemic symptoms)? @ -Uncomplicated Side effects of treatment? @ -No Exacerbation, Progression, or Severe Exacerbation? @ -No Poses a threat to life or bodily function? How? (Chest pain, [place], [place], pneumonia, PE, COPD, DKA, ARF, appy, cholecystitis, CVA, Diverticulitis, Homicidal, Suicidal, threat to staff... and all critical care pts) @ -No - Lab Data Result diagrams: 02/04/24 12:36 02/04/24 12:36 Lab Results 02/04/24 02/04/24 02/04/24 Range/Units 11:06 11:06 12:36 WBC 8.1 (3.8-10.6) k/uL RBC 4.81 (3.80-5.40) m/uL Hgb 13.9 (11.4-16.0) gm/dL Hct 42.9 (34.0-46.0) % MCV 89.1 (80.0-100.0) fL MCH 28.8 (25.0-35.0) pg MCHC 32.3 (31.0-37.0) g/dL RDW 13.2 (11.5-15.5) % Plt Count 290 (150-450) k/uL MPV 6.9 Neutrophils % 76 % Lymphocytes % 18 % Monocytes % 4 % Eosinophils % 1 % Basophils % 0 % Neutrophils # 6.1 (1.3-7.7) k/uL Lymphocytes # 1.5 (1.0-4.8) k/uL Monocytes # 0.3 (0-1.0) k/uL Eosinophils # 0.1 (0-0.7) k/uL Basophils # 0.0 (0-0.2) k/uL Sodium (137-145) mmol/L Potassium (3.5-5.1) mmol/L Chloride (98-107) mmol/L Carbon Dioxide (22-30) mmol/L Anion Gap mmol/L BUN (7-17) mg/dL Creatinine (0.52-1.04) mg/dL Est GFR (CKD-EPI)AfAm (>60 ml/min/1.73 sqM) Est GFR (CKD-EPI)NonAf (>60 ml/min/1.73 sqM) Glucose (74-99) mg/dL Calcium (8.4-10.2) mg/dL Total Bilirubin (0.2-1.3) mg/dL AST (14-36) U/L ALT (4-34) U/L Alkaline Phosphatase (38-126) U/L Total Protein (6.3-8.2) g/dL Albumin (3.5-5.0) g/dL Urine HCG, Qual Not Detected (Not Detectd) Urine Opiates Screen Not Detected (NotDetected) Ur Oxycodone Screen Not Detected (NotDetected) Urine Methadone Screen Not Detected (NotDetected) Ur Barbiturates Screen Detected H (NotDetected) U Tricyclic Antidepress Not Detected (NotDetected) Ur Phencyclidine Scrn Not Detected (NotDetected) Ur Amphetamines Screen Detected H (NotDetected) U Methamphetamines Scrn Detected H (NotDetected) U Benzodiazepines Scrn Detected H (NotDetected) Urine Cocaine Screen Not Detected (NotDetected) U Marijuana (THC) Screen Detected H (NotDetected) 02/04/24 Range/Units 12:36 WBC (3.8-10.6) k/uL RBC (3.80-5.40) m/uL Hgb (11.4-16.0) gm/dL Hct (34.0-46.0) % MCV (80.0-100.0) fL MCH (25.0-35.0) pg MCHC (31.0-37.0) g/dL RDW (11.5-15.5) % Plt Count (150-450) k/uL MPV Neutrophils % % Lymphocytes % % Monocytes % % Eosinophils % % Basophils % % Neutrophils # (1.3-7.7) k/uL Lymphocytes # (1.0-4.8) k/uL Monocytes # (0-1.0) k/uL Eosinophils # (0-0.7) k/uL Basophils # (0-0.2) k/uL Sodium 135 L (137-145) mmol/L Potassium 4.4 (3.5-5.1) mmol/L Chloride 99 (98-107) mmol/L Carbon Dioxide 22 (22-30) mmol/L Anion Gap 14 mmol/L BUN 11 (7-17) mg/dL Creatinine 0.64 (0.52-1.04) mg/dL Est GFR (CKD-EPI)AfAm >90 (>60 ml/min/1.73 sqM) Est GFR (CKD-EPI)NonAf >90 (>60 ml/min/1.73 sqM) Glucose 75 (74-99) mg/dL Calcium 9.7 (8.4-10.2) mg/dL Total Bilirubin 0.5 (0.2-1.3) mg/dL AST 34 (14-36) U/L ALT 25 (4-34) U/L Alkaline Phosphatase 84 (38-126) U/L Total Protein 7.8 (6.3-8.2) g/dL Albumin 4.9 (3.5-5.0) g/dL Urine HCG, Qual (Not Detectd) Urine Opiates Screen (NotDetected) Ur Oxycodone Screen (NotDetected) Urine Methadone Screen (NotDetected) Ur Barbiturates Screen (NotDetected) U Tricyclic Antidepress (NotDetected) Ur Phencyclidine Scrn (NotDetected) Ur Amphetamines Screen (NotDetected) U Methamphetamines Scrn (NotDetected) U Benzodiazepines Scrn (NotDetected) Urine Cocaine Screen (NotDetected) U Marijuana (THC) Screen (NotDetected) - EKG Data -: EKG Interpreted by Me EKG Comments: EKG taken at 11: 53 showing sinus rhythm with inverted T waves in anterior leads. Normal axis. No ST segment depressions or elevations. Ventricular rate 79, NM interval 131, QRS ration 86, QT/QTc 395/430. Disposition Clinical Impression: Acute anxiety, Polysubstance abuse Disposition: HOME SELF-CARE Condition: Stable Instructions (If sedation given, give patient instructions): Generalized Anxiety Disorder (ED) Additional Instructions: Please follow-up with PCP and outpatient resources provided to you. Return to the ER for any new or worsening concerns. Is patient prescribed a controlled substance at d/c from ED?: No Referrals: Cruz Tang MD [Primary Care Provider] - 1-2 days Forms: Inp Substance Abuse Facilities, Community Resources, Outpatient Counseling, Outpatient Therapy List Time of Disposition: 15:33
[2024-02-04 12:00] LABS: Amphetamine Screen,Urine Detected (NotDetected); Benzodiazepines Screen,Urine Detected (NotDetected); Cocaine Screen,Urine Not Detected (NotDetected); Opiate Screen,Urine Not Detected (NotDetected); Phencyclidine Screen,Urine Not Detected (NotDetected); Tricyclic Antidepressant,Urine Not Detected (NotDetected); Urn Cannabinoid Scrn Detected (NotDetected)
[2024-02-04 12:01] LABS: Barbiturate Screen,Urine Detected (NotDetected); Methadone Screen, Urine Not Detected (NotDetected); Oxycodone Screen, Urine Not Detected (NotDetected)
[2024-02-04 12:42] LABS: Basophils % (A) 0 %; Eosinophils # (A) 0.1 k/uL (0-0.7); Eosinophils % (A) 1 %; HCT 42.9 % (34.0-46.0); HGB 13.9 gm/dL (11.4-16.0); Lymphocytes # (A) 1.5 k/uL (1.0-4.8); Lymphocytes % (A) 18 %; MCH 28.8 pg (25.0-35.0); MCHC 32.3 g/dL (31.0-37.0); MCV 89.1 fL (80.0-100.0); Mean Platelet Volume 6.9; Monocytes # (A) 0.3 k/uL (0-1.0); Monocytes % (A) 4 %; Neutrophils # (A) 6.1 k/uL (1.3-7.7); Neutrophils % (A) 76 %; Platelet Count 290 k/uL (150-450); RBC 4.81 m/uL (3.80-5.40); RDW 13.2 % (11.5-15.5); WBC 8.1 k/uL (3.8-10.6)
[2024-02-04 12:52] LABS: ALT 25 U/L (4-34); AST 34 U/L (14-36); African American GFR (CKD) >90 (>60 ml/min/1.73 sqM); Albumin 4.9 g/dL (3.5-5.0); Alkaline Phosphatase 84 U/L (38-126); Anion Gap 14 mmol/L; Blood Urea Nitrogen 11 mg/dL (7-17); Calcium 9.7 mg/dL (8.4-10.2); Carbon Dioxide 22 mmol/L (22-30); Chloride 99 mmol/L (98-107); Glucose 75 mg/dL (74-99); Non-African American GFR(CKD) >90 (>60 ml/min/1.73 sqM); Potassium 4.4 mmol/L (3.5-5.1); Sodium 135 mmol/L (137-145); Total Bilirubin 0.5 mg/dL (0.2-1.3); Total Protein 7.8 g/dL (6.3-8.2)
[2024-02-04 16:26] VITALS: BP 141/81; PULSE 71; TEMP 98.3
== END 2024-02-04 16:29 | disposition home or self-care (01) ==
LOC: EC 09:22
CPT/HCPCS: 36415; 80053; 80306; 81025; 82075; 85025; 93005; 99284